=== PATIENT | male | born 1945 | race Caucasian/White ===

== ENCOUNTER → 2022-06-23 | Outpatient (CLI) | payer OTHER ==
[~2022-06-23] MED LIST: REGADENOSON 0.4 MG/5 ML PF SYG IVP SCH
== END | disposition home or self-care (01) ==
LOC: SHCH 08:14
PROVIDERS: ATTEND Internal Medicine Cardiovascular Disease
DX: I25.110 Atherosclerotic heart disease of native coronary artery with unstable angina pectoris (principal); I11.9 Hypertensive heart disease without heart failure; Z95.5 Presence of coronary angioplasty implant and graft
CPT/HCPCS: 78452; 96374; 93017; J2785; A9500 ×2

== ENCOUNTER → 2022-08-25 | Outpatient (CLI) | payer OTHER | END | disposition home or self-care (01) | LOC: LAB 15:43 | PROVIDERS: ATTEND Internal Medicine Cardiovascular Disease | DX: I10 Essential (primary) hypertension (principal) | CPT/HCPCS: 36415; 83880 ==

== ENCOUNTER 2022-10-09 06:14 | Day surgery (SDC) | payer OTHER ==
[2022-10-07 08:32] LABS: BASOPHILS % (AUTO) 0.8 % (0.0-5.0); EOSINOPHILS % (AUTO) 1.7 % (0.0-8.0); HEMATOCRIT 40.1 % (42-54); LYMPHOCYTES % (AUTO) 25.7 % (21.0-51.0); MEAN CORPUSCULAR HGB CONC 32.7 g/dL (32.0-36.0); MONOCYTES % (AUTO) 7.3 % (3.0-13.0); NEUTROPHILS % (AUTO) 64.1 % (40.0-77.0); PLATELET COUNT (AUTO) 184 K/uL (130-400); RED BLOOD CELL COUNT(AUTO) 3.97 MIL/uL (4.50-6.20); RED CELL DISTRIBUTION WIDTH 12.7 % (11.0-15.5); WHITE BLOOD COUNT (AUTO) 7.4 K/uL (4.8-10.8)
[2022-10-07 08:35] LABS: APPEARANCE,URINE CLEAR (CLEAR); BILIRUBIN,URINE NEGATIVE (NEGATIVE); COLOR,URINE YELLOW (YELLOW); GLUCOSE, URINE (UA) NEGATIVE (NEGATIVE); KETONES,URINE NEGATIVE (NEGATIVE); LEUKOCYTE ESTERASE ,URINE NEGATIVE Leu/uL (NEGATIVE); NITRATE,URINE NEGATIVE (NEGATIVE); OCCULT BLOOD,URINE NEGATIVE (NEGATIVE); PH,URINE 5.5 (5.0-8.0); PROTEIN,URINE 10 mg/dL (NEGATIVE); UROBILINOGEN,URINE 0.2 mg/dL (0.2-1.0)
[2022-10-07 08:36] LABS: MUCUS,URINE RARE LPF (None Seen); RBC,URINE 0-1 /HPF (0-1); SQUAMOUS EPITHELIAL CELL,UR RARE /HPF (0-2); WBC,URINE 0-1 /HPF (0-1)
[2022-10-07 08:40] LABS: CREATININE 1.2 mg/dL (0.5-1.5); POTASSIUM 4.3 mmol/L (3.5-5.1)
[2022-10-07 08:43] LABS: PROTHROMBIN TIME 10.9 SEC (9.6-11.6)
[2022-10-07 08:44] LABS: PARTIAL THROMBOPLASTIN TIME 27.3 SEC (26.3-35.5)
[2022-10-07 08:52] LABS: B-TYPE NATRIURETIC PEPTIDE 13 pg/mL (0-100)
[2022-10-07 09:01] VITALS: BP 145/76
[~2022-10-09] VITALS: Ht 189.2 cm; Wt 146.1 kg
[2022-10-09] VITALS (8 sets, daily range): BP systolic 120–131; BP diastolic 70–84
[~2022-10-09 06:14] MED LIST changes: +0.9% NACL 500ML IV.SOLN 500 ML IV SCH; +ATOR40TA71 PO; +CHOL100046 PO; +CLOP75TA32 PO; +CYAN250010 PO; +FAMO40TA7 PO; +ISOS60TA77 PO; +LEVO137C4 PO; +LISI2.5T13 PO; +MAGN500C4 PO; +METO-408 PO; +MULT-1289 PO; +OMEP20CA12 PO; +RANO10005 PO; -REGADENOSON 0.4 MG/5 ML PF SYG IVP SCH
[2022-10-09] MEDS ORDERED: 0.9%NACL 1000ML 1,000 ML IV ONE (07:20)
[2022-10-09] MEDS ORDERED: LIDOCAINE HCL 400MG/20ML VIAL ONE (11:10)
[2022-10-09] MEDS ORDERED: MIDAZOLAM HCL 1 MG/ML 2ML VIAL ONE (11:10)
[2022-10-09] MEDS ORDERED: HEPARIN 10,000 UNIT/10ML (1,000 UNIT/ML) VIAL ONE (11:10)
[2022-10-09] MEDS ORDERED: IOHEXOL 350 MG/ML 100ML INFUS..BTL IV ONE (11:10)
[2022-10-09] MEDS ORDERED: NITROGLYCERIN 50MG VIAL ONE (11:10)
[2022-10-09] MEDS ORDERED: IOHEXOL-350 50ML VIAL IV ONE (11:18)
== END 2022-10-09 16:10 | disposition home or self-care (01) ==
LOC: DAH 06:14
PROVIDERS: ATTEND Internal Medicine Cardiovascular Disease
DX: I25.119 Atherosclerotic heart disease of native coronary artery with unspecified angina pectoris (principal); I10 Essential (primary) hypertension; E78.5 Hyperlipidemia, unspecified; E03.9 Hypothyroidism, unspecified; Z82.49 Family history of ischemic heart disease and other diseases of the circulatory system; Z79.01 Long term (current) use of anticoagulants; Z79.82 Long term (current) use of aspirin; Z79.899 Other long term (current) drug therapy; Z86.19 Personal history of other infectious and parasitic diseases; Z98.890 Other specified postprocedural states; Z95.5 Presence of coronary angioplasty implant and graft
CPT/HCPCS: 80048; 83880; 85025; 85610; 85730; 81001; 36415; 71045; 93005 ×2; 93458; C1894; C1760; J3490; J7030; J2250; J1644; Q9967 ×2; A4215; A4222; A4221; A4663; A4216; A4606; Q9965; A4223 ×3; 99156; 99157